=== PATIENT | female | born 1970 | race Caucasian/White ===

== ENCOUNTER 2016-09-05 09:17 | Emergency (ER) | payer MEDICAID ==
[~2016-09-05] VITALS: Ht 152.4 cm; Wt 67.0 kg
[~2016-09-05 09:17] MED LIST: BENADRYL; MVI
[2016-09-05 10:41] VITALS: BP 129/50
[2016-09-05] MEDS ORDERED: PROCHLORPERAZINE MALEATE 10MG TABLET PO ONE (10:45)
[2016-09-05] MEDS ORDERED: KETOROLAC 60MG/2ML VIAL IM ONE (10:45)
== END 2016-09-05 11:29 | disposition home or self-care (01) ==
LOC: ER 09:47
DX: J01.90 Acute sinusitis, unspecified (principal); J40 Bronchitis, not specified as acute or chronic; G43.909 Migraine, unspecified, not intractable, without status migrainosus; F17.210 Nicotine dependence, cigarettes, uncomplicated; Z98.890 Other specified postprocedural states; Z71.6 Tobacco abuse counseling; Z88.5 Allergy status to narcotic agent
CPT/HCPCS: 71010; 96372; 99283; 99406; J1885; Q0164

== ENCOUNTER 2017-11-06 05:17 | Emergency (ER) | payer MEDICAID ==
[~2017-11-06] VITALS: Ht 152.4 cm; Wt 73.4 kg
[2017-11-06] MEDS ORDERED: MECLIZINE 25MG TABLET PO ONE (08:00)
[2017-11-06 08:23] LABS: BASOPHILS % 0.9 % (0.0-2.0); EOSINOPHILS % 2.1 % (0.0-5.0); HEMOGLOBIN. 12.2 g/dL (12.0-16.0); LYMPHOCYTES % 39.1 % (20.0-50.0); MEAN CORPUSCULAR HEMOGLOBIN 29.2 pg (28.0-32.0); MEAN CORPUSCULAR VOLUME 86.4 fL (81.0-99.0); MEAN PLATELET VOLUME 7.9 fl (7.4-10.4); MONOCYTES % 5.2 % (2.0-8.0); NEUTROPHILS % 52.7 % (40.0-76.0); PLATELET 190 x1000/uL (130-400); RED BLOOD CELL COUNT 4.16 mill/uL (4.2-5.4)
[2017-11-06 08:29] LABS: CHLORIDE 108 mEq/L (98-107)
[2017-11-06 11:42] LABS: CLARITY URINE CLEAR (CLEAR); COLOR URINE YELLOW (YELLOW); KETONES URINE NEGATIVE (NEGATIVE); LEUKOCYTE ESTERASE URINE NEGATIVE (NEGATIVE); NITRITE URINE NEGATIVE (NEGATIVE); OCCULT BLOOD URINE TRACE (NEGATIVE); PROTEIN URINE NEGATIVE (NEGATIVE); SPECIFIC GRAVITY URINE 1.013 (1.005-1.030); UROBILINOGEN URINE 0.2 E.U./dL (0.2-1.0)
[2017-11-06 12:22] VITALS: BP 121/68
== END 2017-11-06 12:56 | disposition home or self-care (01) ==
LOC: ER 07:17
DX: R42 Dizziness and giddiness (principal)
CPT/HCPCS: 36415; 71045; 80053; 81003; 81025; 84484; 85025; 93005; 99285; Z7610; J8597

== ENCOUNTER → 2020-02-11 | Outpatient (CLI) | payer MEDICAID ==
[~2020-02-11] MED LIST changes: +ASPI-1153 PO; +CLAR10 PO; +GABA-531 PO; +TOPUD PO
== END | disposition home or self-care (01) ==
LOC: LAB 09:01
PROVIDERS: ATTEND Orthopaedic Surgery
DX: Z01.812 Encounter for preprocedural laboratory examination (principal); Z20.828 Contact with and (suspected) exposure to other viral communicable diseases; M65.342 Trigger finger, left ring finger
CPT/HCPCS: C9803; U0003

== ENCOUNTER → 2020-02-13 | Day surgery (SDC) | payer MEDICAID ==
[~2020-02-13] VITALS: Ht 152.4 cm; Wt 67.6 kg
[~2020-02-13] MED LIST changes: +BACITRACIN 50,000 UNITS/VIAL ONE; +BUPIVACAINE HCL/PF 0.25% (2.5MG/ML) 10ML ONE; +BUPIVACAINE/EPINEPH/PF 0.25%/0.0005 10ML ONE; +CEFAZOLIN SODIUM 1000MG/VIAL ONE; +FENTANYL CITRATE/PF 50MCG/ML 2ML VIAL ONE; +GENTAMICIN SULF 40MG/ML 2ML VIAL ONE; +GLYCOPYRROLATE 0.2 MG/ML 2ML VIAL ONE; +HYDROCODONE/ACETAMINOPHEN 10/325MG TABLET PO PRN; +LACTATED RINGERS 1,000 ML IV SCH; +MEPERIDINE HCL/PF 25MG/ML CPJ IV PRN; +METOCLOPRAMIDE HCL 10MG/2ML VIAL ONE; +MIDAZOLAM HCL 2 MG/2 ML VIAL ONE; +MORPHINE SULFATE 2 MG/ML CPJ (NOT FOR IM USE) IV PRN; +ONDANSETRON HCL 4MG/2ML INJ IV PRN; +ONDANSETRON HCL 4MG/2ML INJ ONE; +PROPOFOL 200MG/20ML VIAL IV ONE; +SKIN ADHESIVE 0.7 GM EA TOP ONE; +SODIUM CHLORIDE 0.9% 1,000 ML IV ONE; +SUCCINYLCHOLINE CHLORIDE 200MG/10ML IV ONE; +VANCOMYCIN HCL 1 GM/VIAL ONE
== END | disposition home or self-care (01) ==
LOC: OR 06:40
PROVIDERS: ATTEND Orthopaedic Surgery
DX: M65.332 Trigger finger, left middle finger (principal); G43.909 Migraine, unspecified, not intractable, without status migrainosus; E66.3 Overweight; F17.210 Nicotine dependence, cigarettes, uncomplicated; Z87.440 Personal history of urinary (tract) infections; Z79.899 Other long term (current) drug therapy; Z79.82 Long term (current) use of aspirin; Z98.890 Other specified postprocedural states; Z82.49 Family history of ischemic heart disease and other diseases of the circulatory system; Z83.3 Family history of diabetes mellitus; Z88.8 Allergy status to other drugs, medicaments and biological substances; Z68.29 Body mass index [BMI] 29.0-29.9, adult
CPT/HCPCS: 26055; 88305; J0330; J0690; J2250; J2405; J2704; J2765; J3010; J3490; L1830; J0171; J1580; J3370